=== PATIENT | female | born 1945 | race Caucasian/White ===

== ENCOUNTER 2018-07-01 09:45 | Emergency (ER) | payer MEDICARE ==
[2018-07-01 11:06] LABS: #Basophils 0.1 thou/uL (0.0-0.2); #Eosinphils 0.1 thou/uL (0.0-0.7); #Lymphocytes 1.4 thou/uL (1.20-3.40); #Monocytes 0.6 thou/uL (0.11-0.59); #Neutrophils 6.1 thou/uL (1.40-6.50); %Basophils 0.6 % (0.0-1.0); %Eosinophils 1.3 % (0.0-10.0); %Lymphocytes 17.1 % (21.0-51.0); %Monocytes 7.3 % (0.0-10.0); %Neutrophils 73.7 % (42.0-75.0); Hemoglobin 12.9 g/dL (12.0-16.0); Mean Corpuscular HGB CONC 31.4 g/dL (32.0-36.0); Mean Corpuscular Hemoglobin 28.7 pg (27.0-31.0); Mean Corpuscular Volume 91.2 fL (78.0-98.0); Mean Platelet Volume 8.1 fL (7.4-10.4); Platelet Count 219 thou/uL (130-400); RBC Distribution Width 12.1 % (11.5-14.5); White Blood Cell (WBC) Count 8.3 thou/uL (4.8-10.8)
[2018-07-01 11:11] LABS: PTT 32.5 SEC (22.9-36.1); Prothrombin Time 13.2 SEC (12.0-14.7)
[2018-07-01 11:21] LABS: ALT (SGPT) 16 U/L (8-55); AST (SGOT) 14 U/L (5-34); Albumin 3.9 g/dL (3.4-4.8); Alkaline Phosphatase 85 U/L (40-150); Anion Gap 9 mmol/L (10-20); BUN (Urea Nitrogen) 31 mg/dL (9.8-20.1); Bilirubin, Total 0.6 mg/dL (0.2-1.2); Calc. Creatinine Clearance 0 mL/min (70-130); Calcium 9.8 mg/dL (7.8-10.44); Carbon Dioxide 27 mmol/L (23-31); Chloride 108 mmol/L (98-107); Estimated GFR-MDRD 65; Globulin 3.4 g/dL (2.4-3.5); Glucose 95 mg/dL (83-110); Potassium 4.1 mmol/L (3.5-5.1); Protein, Total 7.3 g/dL (6.0-8.3); Sodium 140 mmol/L (136-145)
== END 2018-07-01 13:33 | disposition home or self-care (01) ==
LOC: ERS 09:45
DX: K92.2 Gastrointestinal hemorrhage, unspecified (principal); K92.1 Melena; F17.290 Nicotine dependence, other tobacco product, uncomplicated; Z79.899 Other long term (current) drug therapy; Z79.82 Long term (current) use of aspirin
CPT/HCPCS: 36415; 80053; 85025; 85610; 85730; 86850; 86900; 86901; 99284

== ENCOUNTER 2020-04-09 10:10 | Outpatient (CLI) | payer MEDICARE ==
--- NOTE | 2020-04-09 13:26 | CT ---
CT CHEST WITHOUT CONTRAST: Date: 04/09/2020 HISTORY: Follow-up pulmonary nodule. COMPARISON: 04/11/2019 and 08/03/2017. FINDINGS: The left para fissural 6.0 mm nodule is stable. The noncalcified 4.0 mm nodule in the left lower lobe is also stable. No new pulmonary nodules are seen. Changes of pulmonary emphysema are again noted. There are vascular calcifications without evidence of aneurysmal dilatation of the thoracic aorta. No pleural or pericardial effusions are seen. Upper abd ominal tomograms demonstrate a right renal cyst and cholelithiasis. IMPRESSION: Stable exam since 08/03/2017. POS: [id number]
== END 2020-04-09 10:11 | disposition home or self-care (01) ==
LOC: BICCT 10:10
PROVIDERS: ATTEND Internal Medicine Critical Care Medicine
DX: R91.1 Solitary pulmonary nodule (principal)
CPT/HCPCS: 71250

== ENCOUNTER 2021-05-15 08:32 | Outpatient (CLI) | payer MEDICARE, OTHER | END 2021-05-15 08:33 | disposition home or self-care (01) | LOC: RAD 08:32 | PROVIDERS: ATTEND Internal Medicine Critical Care Medicine | DX: R06.00 Dyspnea, unspecified (principal) | CPT/HCPCS: 71045 ==

== ENCOUNTER 2022-05-28 13:00 | Outpatient (CLI) | payer MEDICARE, OTHER | END 2022-05-28 13:01 | disposition home or self-care (01) | LOC: RAD 13:00 | PROVIDERS: ATTEND Internal Medicine Critical Care Medicine | DX: R06.00 Dyspnea, unspecified (principal) | CPT/HCPCS: 71046 ==

== ENCOUNTER 2023-01-13 12:56 | Outpatient (CLI) | payer MEDICARE, OTHER | END 2023-01-13 12:57 | disposition home or self-care (01) | LOC: BICMAMMO 12:56 | PROVIDERS: ATTEND Internal Medicine | DX: N63.12 Unspecified lump in the right breast, upper inner quadrant (principal); N64.89 Other specified disorders of breast | CPT/HCPCS: 76642; 77065; G0279 ==

== ENCOUNTER 2023-06-11 13:07 | Outpatient (CLI) | payer MEDICARE, OTHER | END 2023-06-11 13:08 | disposition home or self-care (01) | LOC: RAD 13:07 | PROVIDERS: ATTEND Internal Medicine Critical Care Medicine | DX: R06.00 Dyspnea, unspecified (principal) | CPT/HCPCS: 71046 ==

== ENCOUNTER 2023-08-24 09:44 | Outpatient (CLI) | payer MEDICARE, OTHER | END 2023-08-24 09:45 | disposition home or self-care (01) | LOC: BICMAMMO 09:44 | PROVIDERS: ATTEND Internal Medicine | DX: N63.20 Unspecified lump in the left breast, unspecified quadrant (principal) | CPT/HCPCS: 77065; G0279 ==

== ENCOUNTER 2024-02-17 14:05 | Outpatient (CLI) | payer MEDICARE, OTHER | END 2024-02-17 14:06 | disposition home or self-care (01) | LOC: BICMAMMO 14:05 | PROVIDERS: ATTEND Internal Medicine | DX: N63.25 Unspecified lump in the left breast, overlapping quadrants (principal) | CPT/HCPCS: 77066; G0279 ==

== ENCOUNTER 2024-02-21 10:35 | Emergency (ER) | payer MEDICARE, OTHER ==
[~2024-02-21 10:35] MED LIST: Iopamidol-370 76% 500 ML MDV (1 ML CHARGE) ONE
[2024-02-21] MEDS ORDERED: Ondansetron PF 4 MG/2 ML Vial ONE (11:31)
[2024-02-21] MEDS ORDERED: Morphine 4 MG/ML VIAL ONE (11:31)
[2024-02-21 11:47] LABS: #Basophils 0.03 10x3/uL (0.0-0.2); %Basophils 0.3 % (0.0-1.0); %Eosinophils 0.8 % (0.0-10.0); %Lymphocytes 15.1 % (21.0-51.0); %Monocytes 6.4 % (0.0-10.0); %Neutrophils 77.1 % (42.0-75.0); Hematocrit 43.1 % (36.0-47.0); Mean Corpuscular HGB CONC 32.5 g/dL (32.0-36.0); Mean Corpuscular Hemoglobin 28.9 pg (27.0-31.0); Mean Platelet Volume 11.2 fL (7.4-10.4); Platelet Count 225 10x3/uL (130-400); RBC Distribution Width 12.5 % (11.5-14.5); Red Blood Cell (RBC) Count 4.84 mill/uL (4.20-5.40)
[2024-02-21] MEDS ORDERED: hydrALAZINE 20 MG/ML VIAL ONE (12:02)
[2024-02-21 12:07] LABS: Troponin I Less than 0.010 ng/mL (< 0.028)
[2024-02-21 12:26] LABS: ALT (SGPT) 16 U/L (8-55); AST (SGOT) 19 U/L (5-34); Albumin 3.7 g/dL (3.4-4.8); Alkaline Phosphatase 94 U/L (40-110); Anion Gap 16 mmol/L (10-20); BUN (Urea Nitrogen) 23 mg/dL (9.8-20.1); Bilirubin, Total 0.6 mg/dL (0.2-1.2); Calc. Creatinine Clearance 0 mL/min (70-130); Calcium 9.8 mg/dL (7.8-10.44); Carbon Dioxide 25 mmol/L (23-31); Chloride 107 mmol/L (98-107); Estimated GFR 70; Globulin 4.1 g/dL (2.4-3.5); Glucose 85 mg/dL (83-110); Potassium 4.6 mmol/L (3.5-5.1); Protein, Total 7.8 g/dL (5.8-8.1); Sodium 143 mmol/L (136-145)
[2024-02-21] MEDS ORDERED: diphenhydrAMINE 50 MG/ML VIAL ONE (13:47)
[2024-02-21] MEDS ORDERED: methylPREDNISolone Sod Succ/PF 125 MG/2 ML VIAL ONE (13:47)
[2024-02-21] MEDS ORDERED: Metoclopramide HCl 10 MG (2 mL) VIAL ONE (13:47)
[2024-02-21] MEDS ORDERED: Sodium Chloride 0.9% 100 ML ONE (13:47)
[2024-02-21] MEDS ORDERED: Magnesium 2 GM/50 ML BAG (IN WATER) ONE (15:20)
== END 2024-02-21 13:59 | disposition home or self-care (01) ==
LOC: ERS 10:35
DX: R51.9 Headache, unspecified (principal); I10 Essential (primary) hypertension; F17.210 Nicotine dependence, cigarettes, uncomplicated; Z79.82 Long term (current) use of aspirin; Z79.899 Other long term (current) drug therapy
CPT/HCPCS: 70496; 70498; 71045; 80053; 84484; 85025; 93005; J0360; J1200; J2272; J2405; J2765; J2930; J3475; 96365; 96375; Q9967

== ENCOUNTER 2024-06-20 09:26 | Outpatient (CLI) | payer MEDICARE, OTHER | END 2024-06-20 09:27 | disposition home or self-care (01) | LOC: RAD 09:26 | PROVIDERS: ATTEND Internal Medicine Critical Care Medicine | DX: R06.00 Dyspnea, unspecified (principal) | CPT/HCPCS: 71046 ==

== ENCOUNTER 2025-04-04 11:36 | Outpatient (CLI) | payer MEDICARE, OTHER | END 2025-04-04 11:37 | disposition home or self-care (01) | LOC: BICMAMMO 11:36 | PROVIDERS: ATTEND Internal Medicine | DX: Z12.31 Encounter for screening mammogram for malignant neoplasm of breast (principal); Z80.3 Family history of malignant neoplasm of breast | CPT/HCPCS: 77063; 77067 ==

== ENCOUNTER 2025-06-19 09:55 | Outpatient (CLI) | payer MEDICARE, OTHER | END 2025-06-19 09:56 | disposition home or self-care (01) | LOC: RAD 09:55 | PROVIDERS: ATTEND Internal Medicine Critical Care Medicine | DX: R06.00 Dyspnea, unspecified (principal) | CPT/HCPCS: 71046 ==

== ENCOUNTER 2025-07-02 07:40 | Inpatient (IN) | payer MEDICARE, OTHER ==
[2025-07-02 08:28] LABS: #Basophils Less than 0.03 10x3/uL (0.0-0.2); #Eosinophils Less than 0.03 10x3/uL (0.0-0.7); #Monocytes 0.98 10x3/uL (0.11-0.59); #Neutrophils 8.20 10x3/uL (1.40-6.50); %Basophils 0.2 % (0.0-1.0); %Eosinophils 0.2 % (0.0-10.0); %Lymphocytes 13.0 % (21.0-51.0); %Monocytes 9.2 % (0.0-10.0); %Neutrophils 77.1 % (42.0-75.0); Hematocrit 46.1 % (36.0-47.0); Hemoglobin 15.4 g/dL (12.0-16.0); Mean Corpuscular Hemoglobin 28.7 pg (27.0-31.0); Mean Corpuscular Volume 86.0 fL (78.0-98.0); Platelet Count 257 10x3/uL (130-400); Red Blood Cell (RBC) Count 5.36 mill/uL (4.20-5.40); White Blood Cell (WBC) Count 10.63 10x3/uL (4.8-10.8)
[2025-07-02] MEDS ORDERED: Ondansetron PF 4 MG/2 ML Vial ONE (08:30)
[2025-07-02] MEDS ORDERED: Famotidine/PF 20 mg/2ml Vial ONE (08:32)
[2025-07-02 08:48] LABS: ALT (SGPT) 48 U/L (Less than 34); AST (SGOT) 56 U/L (11-34); Albumin 4.0 g/dL (3.1-4.5); Alkaline Phosphatase 118 U/L (40-110); Anion Gap 16 mmol/L (10-20); BUN (Urea Nitrogen) 20 mg/dL (9.8-20.1); Bilirubin, Total 0.7 mg/dL (0.3-1.2); Calc. Creatinine Clearance 0 mL/min (70-130); Calcium 10.7 mg/dL (7.8-10.44); Carbon Dioxide 22 mmol/L (23-31); Chloride 99 mmol/L (98-107); Globulin 3.4 g/dL (2.4-3.5); Glucose 103 mg/dL (83-110); Lipase 26 U/L (8-78); Magnesium 1.9 mg/dL (1.6-2.6); Potassium 4.2 mmol/L (3.5-5.1); Sodium 133 mmol/L (136-145)
[2025-07-02] MEDS ORDERED: Iopamidol-370 76% 500 ML MDV (1 ML CHARGE) ONE (10:12)
[2025-07-02] MEDS ORDERED: Ondansetron PF 4 MG/2 ML Vial IVP PRN (12:55)
[2025-07-02] MEDS ORDERED: Methocarbamol 1 GM in Sodium Chloride 0.9% 100 ML IVPB PRN (12:55)
[2025-07-02] MEDS ORDERED: hydrALAZINE 20 MG/ML VIAL SLOW IVP PRN (12:55)
[2025-07-02] MEDS ORDERED: Acetaminophen 325 MG TAB PO PRN (12:55)
[2025-07-02] MEDS ORDERED: Glucagon 1 MG/ML KIT IM PRN (12:55)
[2025-07-02 15:57] VITALS: BMI 27.9
[2025-07-02 18:44] LABS: Glucose, Urine (Dipstick) Negative (Negative); Leukocyte Negative (Negative); Protein, Urine (Dipstick) Negative (Neg-Trace); Specific Gravity, Urine 1.015 (1.005-1.030)
[2025-07-02 18:54] LABS: CAUTI Indications for Culture Pelvic or flank pain; WBC/HPF 0-3 HPF (0-3)
[2025-07-02 19:21] LABS: Bacteria/HPF 1+ HPF (None Seen)
[2025-07-02 19:23] LABS: Urine Culture Reflex No No
[2025-07-02] MEDS: DorzolamidE/Timolol 2%/0.5% Ophth Soln 10 ml Bottle EA EYE SCH (20:42)
[2025-07-02] MEDS: Metoprolol Succinate XL 25 MG ER.TAB PO SCH (20:42)
[2025-07-02] MEDS: Senokot S 8.6-50 MG TAB PO SCH (20:48)
[2025-07-03 08:59] LABS: #Basophils 0.03 10x3/uL (0.0-0.2); #Eosinophils 0.05 10x3/uL (0.0-0.7); #Monocytes 0.59 10x3/uL (0.11-0.59); #Neutrophils 3.56 10x3/uL (1.40-6.50); %Basophils 0.5 % (0.0-1.0); %Eosinophils 0.9 % (0.0-10.0); %Lymphocytes 26.1 % (21.0-51.0); %Monocytes 10.2 % (0.0-10.0); %Neutrophils 61.6 % (42.0-75.0); Hematocrit 35.5 % (36.0-47.0); Hemoglobin 11.3 g/dL (12.0-16.0); Mean Corpuscular Hemoglobin 29.0 pg (27.0-31.0); Mean Corpuscular Volume 91.3 fL (78.0-98.0); Platelet Count 175 10x3/uL (130-400); Red Blood Cell (RBC) Count 3.89 mill/uL (4.20-5.40); White Blood Cell (WBC) Count 5.78 10x3/uL (4.8-10.8)
[2025-07-03 09:17] LABS: ALT (SGPT) 25 U/L (Less than 34); AST (SGOT) 31 U/L (11-34); Albumin 2.7 g/dL (3.1-4.5); Alkaline Phosphatase 77 U/L (40-110); Anion Gap 12 mmol/L (10-20); BUN (Urea Nitrogen) 22 mg/dL (9.8-20.1); Bilirubin, Total 0.3 mg/dL (0.3-1.2); Calc. Creatinine Clearance 55 mL/min (70-130); Calcium 8.4 mg/dL (7.8-10.44); Carbon Dioxide 20 mmol/L (23-31); Chloride 110 mmol/L (98-107); Globulin 2.4 g/dL (2.4-3.5); Glucose 41 mg/dL (83-110); Potassium 4.1 mmol/L (3.5-5.1); Sodium 138 mmol/L (136-145)
[2025-07-03] MEDS: Dextrose 50% Abboject 50 ML SYRINGE SLOW IVP PRN (09:55)
[2025-07-03 09:57] LABS: Hematocrit 35.9 % (36.0-47.0); Hemoglobin 11.2 g/dL (12.0-16.0)
[2025-07-03 11:27] VITALS: TEMP 97.8
[2025-07-03 16:12] VITALS: BP 137/73
[2025-07-04] MEDS ORDERED: Estradiol 0.01% Vaginal Cream 42.5 gm Tube VAG SCH (09:00)
== END 2025-07-03 18:07 | disposition home or self-care (01) | DRG 445 ==
LOC: ERS 07:40 → ERHOLD 13:00 → SURG A 15:10
PROVIDERS: ADMIT Surgery; ATTEND Surgery
DX: K80.00 Calculus of gallbladder with acute cholecystitis without obstruction (principal); K56.609 Unspecified intestinal obstruction, unspecified as to partial versus complete obstruction; I10 Essential (primary) hypertension; E78.5 Hyperlipidemia, unspecified; K21.9 Gastro-esophageal reflux disease without esophagitis; Z98.890 Other specified postprocedural states; I48.91 Unspecified atrial fibrillation; Z88.5 Allergy status to narcotic agent; Z79.899 Other long term (current) drug therapy
CPT/HCPCS: 36415; 36416; 74177; 76705; 80053; 81001; 83690; 83735; 85025; 93005; 96361; 96374; 96375; J1308; J2405; J2543; J7042; J7120; J7999; Q9967

== ENCOUNTER 2025-07-10 16:29 | Inpatient (IN) | payer MEDICARE, OTHER ==
[2025-07-10] MEDS ORDERED: Lidocaine 1% PF 5 ML VIAL ONE (18:46)
[2025-07-10] MEDS ORDERED: PROPOFOL 40 ML ONE (18:46)
[2025-07-10] MEDS ORDERED: fentaNYL PF 100 MCG/2 ML SYRINGE ONE (18:46)
[2025-07-10] MEDS ORDERED: Ondansetron PF 4 MG/2 ML Vial ONE (18:46)
[2025-07-10] MEDS ORDERED: Rocuronium Bromide 10 MG/ML (10ML VIAL) ONE ×2 (18:46→18:59)
[2025-07-10] MEDS ORDERED: SUGAMMADEX SODIUM 200 MG/2 ML VIAL ONE (18:47)
[2025-07-10] MEDS ORDERED: CEFAZOLIN 2 GM VIAL ONE (18:57)
[2025-07-10] MEDS ORDERED: PROPOFOL 200 MG/20 ML VIAL ONE (18:59)
[2025-07-10] MEDS ORDERED: Ketamine In 0.9 % NaCl 50 MG/5 ML SYRINGE ONE (19:26)
[2025-07-10] MEDS ORDERED: HYDROmorphone 2 MG/ML VIAL ONE (19:27)
[2025-07-10] MEDS ORDERED: hydrALAZINE 20 MG/ML VIAL SLOW IVP PRN (20:07)
[2025-07-10] MEDS: Ondansetron PF 4 MG/2 ML Vial IVP PRN (20:53)
[2025-07-11 04:49] LABS: #Basophils 0.04 10x3/uL (0.0-0.2); #Eosinophils 0.03 10x3/uL (0.0-0.7); #Monocytes 1.75 10x3/uL (0.11-0.59); #Neutrophils 15.59 10x3/uL (1.40-6.50); %Basophils 0.2 % (0.0-1.0); %Eosinophils 0.2 % (0.0-10.0); %Lymphocytes 4.0 % (21.0-51.0); %Monocytes 9.6 % (0.0-10.0); %Neutrophils 85.5 % (42.0-75.0); Hematocrit 34.0 % (36.0-47.0); Hemoglobin 10.3 g/dL (12.0-16.0); Mean Corpuscular Hemoglobin 28.3 pg (27.0-31.0); Mean Corpuscular Volume 93.4 fL (78.0-98.0); Platelet Count 206 10x3/uL (130-400); Red Blood Cell (RBC) Count 3.64 mill/uL (4.20-5.40); White Blood Cell (WBC) Count 18.22 10x3/uL (4.8-10.8)
[2025-07-11 05:22] LABS: Anion Gap 10 mmol/L (10-20); BUN (Urea Nitrogen) 14 mg/dL (9.8-20.1); Calc. Creatinine Clearance 91 mL/min (70-130); Calcium 8.3 mg/dL (7.8-10.44); Carbon Dioxide 23 mmol/L (23-31); Chloride 113 mmol/L (98-107); Glucose 100 mg/dL (83-110); Potassium 3.5 mmol/L (3.5-5.1); Sodium 142 mmol/L (136-145)
[2025-07-11] MEDS: Enoxaparin 40 MG (0.4 mL) SYRINGE SC SCH (08:17)
[2025-07-11] MEDS: Pantoprazole 40 MG VIAL IVP SCH (08:17)
[2025-07-12 04:44] LABS: #Basophils 0.03 10x3/uL (0.0-0.2); #Eosinophils 0.24 10x3/uL (0.0-0.7); #Monocytes 1.90 10x3/uL (0.11-0.59); #Neutrophils 13.65 10x3/uL (1.40-6.50); %Basophils 0.2 % (0.0-1.0); %Eosinophils 1.4 % (0.0-10.0); %Lymphocytes 6.0 % (21.0-51.0); %Monocytes 11.2 % (0.0-10.0); %Neutrophils 80.5 % (42.0-75.0); Hematocrit 29.5 % (36.0-47.0); Hemoglobin 9.5 g/dL (12.0-16.0); Mean Corpuscular Hemoglobin 29.3 pg (27.0-31.0); Mean Corpuscular Volume 91.0 fL (78.0-98.0); Platelet Count 222 10x3/uL (130-400); Red Blood Cell (RBC) Count 3.24 mill/uL (4.20-5.40); White Blood Cell (WBC) Count 16.96 10x3/uL (4.8-10.8)
[2025-07-12 04:49] VITALS: BMI 27.0
[2025-07-12 05:05] LABS: ALT (SGPT) 14 U/L (Less than 34); AST (SGOT) 19 U/L (11-34); Albumin 1.9 g/dL (3.1-4.5); Alkaline Phosphatase 84 U/L (40-110); Anion Gap 6 mmol/L (10-20); BUN (Urea Nitrogen) 23 mg/dL (9.8-20.1); Bilirubin, Total 0.3 mg/dL (0.3-1.2); Calc. Creatinine Clearance 93 mL/min (70-130); Calcium 8.3 mg/dL (7.8-10.44); Carbon Dioxide 23 mmol/L (23-31); Chloride 117 mmol/L (98-107); Globulin 2.7 g/dL (2.4-3.5); Glucose 148 mg/dL (83-110); Potassium 3.2 mmol/L (3.5-5.1); Sodium 143 mmol/L (136-145)
[2025-07-12] MEDS ORDERED: Dextrose 50% Abboject 50 ML SYRINGE SLOW IVP PRN (07:05)
[2025-07-12] MEDS ORDERED: Glucagon 1 MG/ML KIT IM PRN (07:05)
[2025-07-12 11:16] LABS: Magnesium 1.9 mg/dL (1.6-2.6)
[2025-07-12] MEDS: Potassium Phosphate 30 MMOL in Sodium Chloride 0.9% 250 ML 250 ML IVPB SCH (12:52)
[2025-07-12] MEDS: Mupirocin 1 GM TUBE TP SCH (21:15)
[2025-07-13 06:09] LABS: Anion Gap 11 mmol/L (10-20); BUN (Urea Nitrogen) 21 mg/dL (9.8-20.1); Calc. Creatinine Clearance 106 mL/min (70-130); Calcium 7.9 mg/dL (7.8-10.44); Carbon Dioxide 22 mmol/L (23-31); Chloride 111 mmol/L (98-107); Glucose 149 mg/dL (83-110); Magnesium 1.8 mg/dL (1.6-2.6); Potassium 3.4 mmol/L (3.5-5.1); Sodium 141 mmol/L (136-145)
[2025-07-14 07:15] LABS: #Basophils 0.05 10x3/uL (0.0-0.2); #Eosinophils 0.30 10x3/uL (0.0-0.7); #Monocytes 1.64 10x3/uL (0.11-0.59); #Neutrophils 10.83 10x3/uL (1.40-6.50); %Basophils 0.4 % (0.0-1.0); %Eosinophils 2.1 % (0.0-10.0); %Lymphocytes 7.2 % (21.0-51.0); %Monocytes 11.7 % (0.0-10.0); %Neutrophils 77.5 % (42.0-75.0); Hematocrit 31.3 % (36.0-47.0); Hemoglobin 9.7 g/dL (12.0-16.0); Mean Corpuscular Hemoglobin 28.4 pg (27.0-31.0); Mean Corpuscular Volume 91.8 fL (78.0-98.0); Platelet Count 219 10x3/uL (130-400); Red Blood Cell (RBC) Count 3.41 mill/uL (4.20-5.40); White Blood Cell (WBC) Count 13.98 10x3/uL (4.8-10.8)
[2025-07-14 07:28] LABS: ALT (SGPT) 37 U/L (Less than 34); AST (SGOT) 64 U/L (11-34); Albumin 1.6 g/dL (3.1-4.5); Alkaline Phosphatase 131 U/L (40-110); Anion Gap 10 mmol/L (10-20); BUN (Urea Nitrogen) 22 mg/dL (9.8-20.1); Bilirubin, Total 0.7 mg/dL (0.3-1.2); Calc. Creatinine Clearance 103 mL/min (70-130); Calcium 8.1 mg/dL (7.8-10.44); Carbon Dioxide 23 mmol/L (23-31); Chloride 107 mmol/L (98-107); Globulin 3.1 g/dL (2.4-3.5); Glucose 151 mg/dL (83-110); Potassium 3.7 mmol/L (3.5-5.1); Sodium 136 mmol/L (136-145)
[2025-07-14 11:23] LABS: Magnesium 1.9 mg/dL (1.6-2.6)
[2025-07-14] MEDS ORDERED: Iopamidol-370 76% 500 ML MDV (1 ML CHARGE) ONE (13:09)
[2025-07-15 03:39] LABS: #Basophils 0.03 10x3/uL (0.0-0.2); #Eosinophils 0.23 10x3/uL (0.0-0.7); #Monocytes 1.25 10x3/uL (0.11-0.59); #Neutrophils 8.21 10x3/uL (1.40-6.50); %Basophils 0.3 % (0.0-1.0); %Eosinophils 2.1 % (0.0-10.0); %Lymphocytes 8.7 % (21.0-51.0); %Monocytes 11.4 % (0.0-10.0); %Neutrophils 75.1 % (42.0-75.0); Hematocrit 31.3 % (36.0-47.0); Hemoglobin 9.5 g/dL (12.0-16.0); Mean Corpuscular Hemoglobin 28.0 pg (27.0-31.0); Mean Corpuscular Volume 92.3 fL (78.0-98.0); Platelet Count 246 10x3/uL (130-400); Red Blood Cell (RBC) Count 3.39 mill/uL (4.20-5.40); White Blood Cell (WBC) Count 10.93 10x3/uL (4.8-10.8)
[2025-07-15 03:54] LABS: ALT (SGPT) 38 U/L (Less than 34); AST (SGOT) 58 U/L (11-34); Albumin 1.7 g/dL (3.1-4.5); Alkaline Phosphatase 151 U/L (40-110); Anion Gap 12 mmol/L (10-20); BUN (Urea Nitrogen) 21 mg/dL (9.8-20.1); Bilirubin, Total 0.7 mg/dL (0.3-1.2); Calc. Creatinine Clearance 101 mL/min (70-130); Calcium 8.3 mg/dL (7.8-10.44); Carbon Dioxide 25 mmol/L (23-31); Chloride 104 mmol/L (98-107); Globulin 3.2 g/dL (2.4-3.5); Glucose 142 mg/dL (83-110); Potassium 4.3 mmol/L (3.5-5.1); Sodium 137 mmol/L (136-145)
[2025-07-16 04:12] LABS: Magnesium 2.0 mg/dL (1.6-2.6)
[2025-07-16 14:40] LABS: Hematocrit 29.8 % (36.0-47.0); Hemoglobin 9.3 g/dL (12.0-16.0); Mean Corpuscular Hemoglobin 28.4 pg (27.0-31.0); Mean Corpuscular Volume 90.9 fL (78.0-98.0); Platelet Count 264 10x3/uL (130-400); Red Blood Cell (RBC) Count 3.28 mill/uL (4.20-5.40); White Blood Cell (WBC) Count 11.16 10x3/uL (4.8-10.8)
[2025-07-16 14:47] LABS: ALT (SGPT) 48 U/L (Less than 34); AST (SGOT) 67 U/L (11-34); Albumin 1.7 g/dL (3.1-4.5); Alkaline Phosphatase 154 U/L (40-110); Anion Gap 10 mmol/L (10-20); BUN (Urea Nitrogen) 23 mg/dL (9.8-20.1); Bilirubin, Total 0.6 mg/dL (0.3-1.2); Calc. Creatinine Clearance 111 mL/min (70-130); Calcium 8.2 mg/dL (7.8-10.44); Carbon Dioxide 22 mmol/L (23-31); Chloride 104 mmol/L (98-107); Globulin 3.4 g/dL (2.4-3.5); Glucose 130 mg/dL (83-110); Potassium 4.0 mmol/L (3.5-5.1); Sodium 132 mmol/L (136-145)
[2025-07-16 15:02] LABS: Anisocytosis SLIGHT = 6-15 cells HPF (0-5); Burr Cells MODERATE= 6-15 cells HPF (0-1); Platelet Adequacy Comment Platelets Normal; Poikilocytosis MODERATE=16-30 cells HPF (0-5); Polychromasia SLIGHT = 2-3 cells HPF (0-2); Smudge Cells 4.0 %
[2025-07-16] MEDS: Metoprolol Succinate XL 25 MG ER.TAB PO SCH (17:33)
[2025-07-17 05:00] LABS: Anion Gap 13 mmol/L (10-20); BUN (Urea Nitrogen) 24 mg/dL (9.8-20.1); Calc. Creatinine Clearance 105 mL/min (70-130); Calcium 8.2 mg/dL (7.8-10.44); Carbon Dioxide 23 mmol/L (23-31); Chloride 103 mmol/L (98-107); Glucose 119 mg/dL (83-110); Potassium 4.0 mmol/L (3.5-5.1); Sodium 135 mmol/L (136-145)
[2025-07-17 05:27] LABS: Hematocrit 27.2 % (36.0-47.0); Hemoglobin 8.6 g/dL (12.0-16.0); Mean Corpuscular Hemoglobin 28.8 pg (27.0-31.0); Mean Corpuscular Volume 91.0 fL (78.0-98.0); Platelet Count 262 10x3/uL (130-400); Red Blood Cell (RBC) Count 2.99 mill/uL (4.20-5.40); White Blood Cell (WBC) Count 10.20 10x3/uL (4.8-10.8)
[2025-07-17 05:50] LABS: Platelet Adequacy Comment Platelets Normal; RBC Morphology Within Normal Limits; Smudge Cells 8.9 %
[2025-07-17] MEDS ORDERED: HYDROcodone/Acetaminophen 7.5/325 mg Tablet PO PRN ×2 (08:24)
[2025-07-17] MEDS: HYDROcodone/Acetaminophen 7.5/325 mg Tablet PO PRN (09:46)
[2025-07-17 15:52] LABS: INR-International Normal Ratio 1.1; PTT 39.5 sec (22.9-36.1); Prothrombin Time 13.9 sec (12.0-14.7)
[2025-07-18] MEDS ORDERED: Lidocaine 1% w/Epinephrine 1:100K 20 ML VIAL ONE (12:41)
[2025-07-18] MEDS ORDERED: Sodium Bicarbonate 2.5 MEQ/5 ML SDV ONE (12:41)
[2025-07-18] MEDS ORDERED: Ondansetron PF 4 MG/2 ML Vial ONE (12:46)
[2025-07-18] MEDS ORDERED: Iopamidol 370 76% 100 ML VIAL ONE (13:07)
[2025-07-18] MEDS: Acetaminophen 325 MG TAB PO PRN (15:56)
[2025-07-18 18:30] VITALS: BMI 29.5
[2025-07-19 04:07] LABS: #Basophils 0.03 10x3/uL (0.0-0.2); #Eosinophils 0.26 10x3/uL (0.0-0.7); #Monocytes 0.91 10x3/uL (0.11-0.59); #Neutrophils 7.19 10x3/uL (1.40-6.50); %Basophils 0.3 % (0.0-1.0); %Eosinophils 2.7 % (0.0-10.0); %Lymphocytes 11.0 % (21.0-51.0); %Monocytes 9.5 % (0.0-10.0); %Neutrophils 74.7 % (42.0-75.0); Hematocrit 27.7 % (36.0-47.0); Hemoglobin 8.8 g/dL (12.0-16.0); Mean Corpuscular Hemoglobin 28.8 pg (27.0-31.0); Mean Corpuscular Volume 90.5 fL (78.0-98.0); Platelet Count 345 10x3/uL (130-400); Red Blood Cell (RBC) Count 3.06 mill/uL (4.20-5.40); White Blood Cell (WBC) Count 9.62 10x3/uL (4.8-10.8)
[2025-07-19 04:20] LABS: ALT (SGPT) 58 U/L (Less than 34); AST (SGOT) 77 U/L (11-34); Albumin 1.5 g/dL (3.1-4.5); Alkaline Phosphatase 223 U/L (40-110); Anion Gap 13 mmol/L (10-20); BUN (Urea Nitrogen) 18 mg/dL (9.8-20.1); Bilirubin, Total 0.5 mg/dL (0.3-1.2); Calc. Creatinine Clearance 78 mL/min (70-130); Calcium 8.2 mg/dL (7.8-10.44); Carbon Dioxide 24 mmol/L (23-31); Chloride 106 mmol/L (98-107); Globulin 3.8 g/dL (2.4-3.5); Glucose 71 mg/dL (83-110); Potassium 3.9 mmol/L (3.5-5.1); Sodium 139 mmol/L (136-145)
[2025-07-19] MEDS: HYDROcodone/Acetaminophen 7.5/325 mg Tablet PO PRN (05:26)
[2025-07-19 22:35] VITALS: BP 154/71; TEMP 97.9
== END 2025-07-20 00:23 | DRG 330 ==
LOC: CCU 18:04 → SURG A 07-13 11:01 → CCU 07-14 10:11 → PCU 07-17 12:39
PROVIDERS: ADMIT Surgery; ATTEND Surgery
PROC: 0DTB0ZZ Resection of Ileum, Open Approach (ICD-10-PCS; principal; 2025-07-10)
PROC: 0W9G4ZZ Drainage of Peritoneal Cavity, Percutaneous Endoscopic Approach (ICD-10-PCS; 2025-07-18)
DX: K91.30 Postprocedural intestinal obstruction, unspecified as to partial versus complete (principal); C78.4 Secondary malignant neoplasm of small intestine; I10 Essential (primary) hypertension; E78.5 Hyperlipidemia, unspecified; K21.9 Gastro-esophageal reflux disease without esophagitis; I48.91 Unspecified atrial fibrillation; Z95.1 Presence of aortocoronary bypass graft; Z90.710 Acquired absence of both cervix and uterus; Z90.89 Acquired absence of other organs; Z79.899 Other long term (current) drug therapy; Z79.82 Long term (current) use of aspirin; Z88.8 Allergy status to other drugs, medicaments and biological substances
CPT/HCPCS: 36415; 36416; 49406; 71045; 71260; 74177; 77002; 78226; 80048; 80053; 82378; 83735; 84100; 85025; 85610; 85730; 86301; 87070; 87077; 87205; 88307; A4314; A4649; A9537; C1729; C1769; J0612; J1100; J1171; J1650; J2250; J2270; J2272; J2405; J2470; J2543; J2704; J3010; J3475; J3490; J7030; J7050; J7070; P9045; Q9967